=== PATIENT | male | born 1990 | race Caucasian/White ===

== ENCOUNTER 2018-01-09 19:07 | Emergency (ER) | payer SELFPAY ==
[~2018-01-09] VITALS: Ht 170.2 cm; Wt 71.5 kg
[2018-01-09 19:09] VITALS: BP 125/78
[2018-01-09] MEDS ORDERED: DIPHENHYDRAMINE 25 MG CAPSULE PO ONE (20:00)
[2018-01-09] MEDS ORDERED: DEXAMETHASONE 4 MG TABLET PO ONE (20:00)
[2018-01-09] MEDS ORDERED: DEXAMETHASONE 4 MG TABLET ONE (20:12)
[2018-01-09] MEDS ORDERED: DIPHENHYDRAMINE 25 MG CAPSULE ONE (20:12)
== END 2018-01-09 21:12 | disposition home or self-care (01) ==
LOC: ED 20:32
DX: S10.96XA Insect bite of unspecified part of neck, initial encounter (principal); W57.XXXA Bitten or stung by nonvenomous insect and other nonvenomous arthropods, initial encounter; Y93.89 Activity, other specified; Y99.8 Other external cause status; Y92.89 Other specified places as the place of occurrence of the external cause
CPT/HCPCS: 99283; Q0163